=== PATIENT | male | born 1995 | race Asian ===

== ENCOUNTER 2016-06-26 03:12 | Emergency (ER) | payer BC ==
[~2016-06-26] VITALS: Ht 175.3 cm; Wt 74.5 kg
[2016-06-26 03:22] VITALS: TEMP 36.8; Ht 175.3 cm; Wt 74.5 kg
[2016-06-26] MEDS ORDERED: ALBUT/IPRATROP 3MG/0.5MG NEB 3 ML VIAL INH STA (03:30)
[2016-06-26] MEDS ORDERED: PSEUDOEPHEDRINE HCL 30 MG TAB PO STA (03:31)
[2016-06-26] MEDS ORDERED: NF406 PO (03:44)
[2016-06-26] MEDS ORDERED: IBUP-1427 PO (03:45)
[2016-06-26] MEDS ORDERED: AMX500 (03:47)
[2016-06-26] MEDS ORDERED: AMOX1TAB42 PO (03:47)
[2016-06-26] MEDS ORDERED: VNTHFA/IN INH (03:48)
[2016-06-26 04:19] VITALS: BP 128/66; PULSE 111; O2SAT 94
--- NOTE | 2016-06-26 04:19 | EMERGENCY ROOM VISIT NOTE ---
History First contact with patient: 03:26 Chief Complaint: RESPIRATORY PROBLEMS Stated Complaint: ASTHMA ATTACK,POSSIBLY PNEUMONIA Nursing Triage Summary: Pt reports he was dx with the flu 1 week ago. Developed "asthma-like" symptoms 1 day ago. Hx of asthma. Cough. History of Present Illness The patient is a 20 year old male who presents to the Emergency Room with complaints of cough and wheezing for the past week. Patient was diagnosed with influenza and ear infection 5 days ago. Continue medications as directed. Patient states he feels better from this. Patient is concerned about his asthma. Patient denies chest pain, abdominal pain, neck stiffness, vomiting, diarrhea, leg pain or swelling. No recent travel. Review of Systems See HPI for pertinent positives & negatives. A total of 10 systems reviewed and were otherwise negative. Past Medical/Surgical History Asthma Social History Smoking Status: Never Smoker Smokeless Tobacco Use: No Drug Use: none Marital Status: single Occupation Status: [employer] student Current/Historical Medications Scheduled Amoxicillin & Pot Clavulanate (Amoxicillin/Clavulanate P), 1 TAB PO BID Oseltamivir Phosphate (Tamiflu), 75 MG PO BID Scheduled PRN Albuterol Hfa (Ventolin Hfa), 2-4 PUFFS INH DIRECTED PRN for SOB/Wheezing Ibuprofen Tab (Motrin), 200-600 MG PO DIRECTED PRN for Pain or Fever Allergies Coded Allergies: No Known Allergies (Unverified , 06/26/16) Physical Exam Vital Signs Date Time Temp Pulse Resp B/P Pulse Ox O2 Delivery O2 Flow Rate FiO2 06/26/16 03:37 98 Room Air 06/26/16 03:22 36.8 106 16 130/76 95 Room Air Physical Exam PHYSICAL EXAM: Vital Signs: Reviewed Nurse's notes. Oxygen saturation was 95% on room air. GENERAL: Pleasant male with audible wheeze, Alert, oriented and coherent. The patient is able to speak in complete sentences. NECK: Supple, non -tender. CHEST: Symmetrical expansion. no retractions no accessory muscle use. HEART: Regular rate and normal heart sounds, no murmur, gallop or rub. LUNGS: Breath sounds equal but significantly diminished in intensity on both sides. Bilateral wheezes heard but no rales or pleuritic rub. SKIN: The skin was without rashes, erythema, edema, or bruising. There is no tenting of the skin. Capillary reflex less than 2 seconds. HEAD: Normocephalic atraumatic. EARS: External auditory canals clear, tympanic membranes pearly bliss without erythema or effusion bilaterally. EYES: Pupils equal round and reactive to light and accommodation. Conjunctivae without injection, sclerae without icterus. Extraocular movements intact. NOSE: Patent, turbinates without inflammation or discharge. No sinus tenderness. MOUTH: Mucous membranes moist. Tonsils are not enlarged. Pharynx without erythema or exudate. Uvula midline. Airway patent. Tongue does not deviate. ABDOMEN: Positive bowel sounds x 4. Normal tympanic percussion. Soft, nontender, without masses or organomegaly. Weber sign negative. No guarding or rebound tenderness. MUSCULOSKELETAL: No muscle atrophy, erythema, or edema noted. NEURO: Patient was alert and oriented to person place and time. Normal sensation to light and sharp touch. No focal neurological deficits. Medical Decision & Procedures Medications Administered Medications (Trade) Dose Ordered Sig/Vasyl Route Start Time Stop Time Status Last Admin Dose Admin Prednisone (PredniSONE TAB) 60 mg NOW STAT PO 06/26/16 03:30 06/26/16 03:31 DC 06/26/16 03:44 60 MG Albuterol/ Ipratropium (Duoneb) 3 ml NOW STAT INH 06/26/16 03:30 06/26/16 03:31 DC 06/26/16 03:44 3 ML Pseudoephedrine HCl (Sudafed Tab) 60 mg NOW STAT PO 06/26/16 03:31 06/26/16 03:32 DC 06/26/16 03:43 60 MG ED Course Prior records/ancillary studies reviewed. Triage Nursing notes reviewed. The patient's history was concerning for respiratory difficulties. Differential diagnosis: Etiologies such as infections, reactive airway disease, pneumonia, pneumothorax , COPD, CHF, cardiac ischemia, pulmonary embolism, musculoskeletal, gastrointestinal, as well as others were entertained. Physical examination: As above. ER treatment provided: Steroids, nebulizer On reassessment the patient felt better. Diagnostic interpretation by me: Imaging studies: Chest x-ray with no acute consolidation or pneumothorax per my interpretation. This appears to be consistent with asthma exacerbation. Patient felt much better after being medicated as above. Lungs are reassessed and improved. He is advised to take medications as directed and follow-up with health services in a few days or here in the ER sooner for difficulty breathing, high fevers, chest pains, worsening signs or symptoms or as needed. By the evaluation outlined above emergent etiologies such as CHF, cardiac ischemia, pulmonary embolism, pneumonia, pneumothorax, musculoskeletal, serious bacterial infections, as well as others were deemed relatively unlikely. The pt informed about the findings as listed above. All questions were answered and pleased with the treatment. Return instructions were outlined and the patient was discharged in stable condition. Outpatient prescription management: Prednisone Referral: The patient was referred back to their primary care physician for follow-up in 2 to 3 days for a recheck of the current condition. Medical Decision As above Impression Primary Impression: Acute asthma exacerbation Departure Information Dispostion Home / Self-Care Condition GOOD Referrals [facility] (PCP) Patient Instructions My [facility] Additional Instructions Albuterol Inhaler: Take 2 puffs four times daily for five days, then as needed. Prednisone 50mg: Once daily until the prescription is finished. It is best to take this earlier in the day as some patients note occasional difficulty falling asleep when taken in the late evening. Acetaminophen(Tylenol) may be used for fever or pain. Use 1000mg every six hours as needed. Avoid using more than 3000mg in a 24 hour period. (AND/OR) Ibuprofen(Motrin, Advil) may be used for fever or pain. Use 600mg every six hours as needed. Take with food. Avoid using more than 2400mg in a 24 hour period. Do not use 2400mg per day for more than three consecutive days without physician direction. Prolonged inappropriate use can lead to stomach upset or ulcers. Rest and drink plenty of fluids. Avoid smoke/smoking, fumes, dust, or any triggers in the past that may have affected your breathing. Continue current medications. Return to the ER for chest pain, difficulty breathing, fevers, vomiting, worsening of your condition, or as needed. Follow up with your primary physician this week for a recheck of your current condition. Problem Qualifiers Primary Impression: Acute asthma exacerbation Asthma severity: unspecified severity Qualified Codes: J45.901 - Unspecified asthma with (acute) exacerbation
[2016-06-26] MEDS ORDERED: PRED50TA PO (04:20)
--- NOTE | 2016-06-26 08:24 | DIAGNOSTIC IMAGING REPORT ---
TWO VIEW CHEST CLINICAL HISTORY: Cough and fever. FINDINGS: PA and lateral chest radiographs are obtained. No prior studies are available for comparison at the time of dictation. The cardiomediastinal silhouette is unremarkable. The lungs and pleural spaces are clear. There is no pneumothorax. The bony thorax appears intact. IMPRESSION: No active disease in the chest. Electronically signed by: Mendoza Fernández M.D. 06/26/2016 8:23 AM Dictated Date/Time: 06/26/2016 8:22 AM
== END 2016-06-26 04:25 | disposition home or self-care (01) ==
LOC: C.EDB 03:13
DX: J45.901 Unspecified asthma with (acute) exacerbation (principal)

== ENCOUNTER 2016-08-18 00:44 | Emergency (ER) | payer BC ==
[~2016-08-18] VITALS: Ht 175.3 cm; Wt 77.1 kg
[~2016-08-18 00:44] MED LIST: AMOX1TAB42 PO; IBUP-1427 PO; NF406 PO; VNTHFA/IN INH
[2016-08-18 00:48] VITALS: TEMP 36.6; Ht 175.3 cm; Wt 77.1 kg
--- NOTE | 2016-08-18 01:21 | EMERGENCY ROOM VISIT NOTE ---
History Report prepared by Lucia: Kan Earl Under the Supervision of: Dr. Radha Dunlap D.O. First contact with patient: 00:53 Chief Complaint: HEAD INJURY (MINOR) Stated Complaint: HIT HEAD, CUT ON FOREHEAD History of Present Illness The patient is a 20 year old male who presents to the Emergency Room with complaints of a head injury that occurred [employer]. The patient rates his pain a 5/ 10 in severity. According to the patient, he slipped and fell face down approximately 5 concrete stairs in his apartment. He says that the stairs were wet. He notes that he had some alcoholic drinks earlier this evening. He hit his head and states that he may have had some loss of consciousness for a couple of seconds. He has a small laceration above his right eyebrow. The reason he came to the ED is for a possible concussion. He is also experiencing nausea, dizziness, and epistaxis. The patient denies any abdominal pain or any other pain. 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 Review of Systems See HPI for pertinent positives & negatives. A total of 10 systems reviewed and were otherwise negative. Past Medical & Surgical None Family History Patient reports no known family medical history. Social History Smoking Status: Never Smoker Alcohol Use: occasionally Drug Use: none Marital Status: single Housing Status: lives with roommate Occupation Status: [email or web address] Current/Historical Medications No Active Prescriptions or Reported Meds Allergies Coded Allergies: No Known Allergies (Unverified , 08/18/16) Physical Exam Vital Signs Date Time Temp Pulse Resp B/P Pulse Ox O2 Delivery O2 Flow Rate FiO2 08/18/16 02:27 79 17 113/75 98 Room Air 08/18/16 00:48 16 99 08/18/16 00:48 36.6 103 16 131/81 99 Room Air Physical Exam HEENT: Head - normocephalic. Small superficial laceration to the right frontal region with surrounding hematoma. It is 1.5 cm's. Pupils are equal, round, and reactive to light. Extraocular eye muscles are intact and sclera are anicteric. Ears - bilaterally patent canals with no evidence of hemotympanum. Nose - Dried blood in both nares. Mouth - moist buccal mucosa with no trauma to the teeth or signs of malocclusion. Neck: The neck is supple and there is no pain to palpation over the posterior cervical spine and no obvious step-offs or deformities. There is no JVD or tracheal deviation. Chest: There are no signs of deformities, contusions or abrasions to the chest wall. There is no obvious crepitus or paradoxical chest rise. Heart: Regular, rate, and rhythm. There is a normal S1 and S2 with no murmurs, clicks, or gallops appreciated. Lungs: Clear to auscultation bilaterally with no wheezes, rales, or rhonchi. Abdomen: Soft, completely nontender, nondistended, with good bowel sounds. There is no sign of trauma such as contusions, abrasions or penetrations. There are no palpable pulsatile masses or hepatosplenomegaly. There is no guarding, rigidity, or rebound noted. Pelvis: Stable to rock and compression. Extremities: No obvious trauma, deformities, contusions, or edema. There are easily palpable peripheral pulses. Neuro: The patient is awake and alert and easily able to follow commands. Muscle strength is 5 out of 5 in all 4 extremities. Otherwise, neuro exam is unremarkable. Back: The entire thoracic, lumbar, and sacral spine were palpated. There are no obvious step-offs or deformities noted. There are no obvious signs of trauma such as contusions abrasions penetrations noted to the back. Medical Decision & Procedures ER Provider Diagnostic Interpretation: Radiology results as stated below per my review and the radiologist's interpretation: CT HEAD: Forehead contusion. No calvarial or brain injury. CT FACIAL: No fracture. CT C SPINE: No fracture. Radiologist: Williams Mckeon M.D. Procedure Laceration was repaired by Baudilio Veloz PA-C. See his note ED Course 0053: Past medical records reviewed. The patient was evaluated in room B10. A complete history and physical exam was performed. 0244: At this time, Baudilio Veloz PA-C, performed a laceration repair procedure on this patient due to a high volume of patients at this time. Please see his procedure note for more information. 0259: Upon reevaluation, the patient is resting. I discussed findings and results with him. He verbalized agreement of the treatment plan. He was discharged home. Medical Decision The patient is a 20 year old male who presents to the ED with a head injury. Differential diagnosis includes skull fracture, nasal bone fracture, concussion , intracranial trauma, forehead laceration, and c-spine injury. CT scans of the facial bones, brain and cervical spine were unremarkable. The wound on his forehead was repaired with Dermabond. The patient is feeling fine. He'll be discharged home to rest with his head elevated and apply ice to his forehead. Impression Primary Impression: Forehead laceration Additional Impressions: Closed head injury Fall down stairs Scribe Attestation The scribe's documentation has been prepared under my direction and personally reviewed by me in its entirety. I confirm that the note above accurately reflects all work, treatment, procedures, and medical decision making performed by me. Departure Information Dispostion Home / Self-Care Prescriptions No Active Prescriptions or Reported Meds Referrals [facility] (PCP) Forms HOME CARE DOCUMENTATION FORM, IMPORTANT VISIT INFORMATION Patient Instructions ED Laceration Facial Skin Glue, My [employer] Additional Instructions Rest with your head elevated. Apply ice Use tylenol for headache Allow the glue to flake off slowly Watch for signs of infection Problem Qualifiers
[2016-08-18 02:27] VITALS: BP 113/75; PULSE 79; O2SAT 98
--- NOTE | 2016-08-18 02:44 | EMERGENCY ROOM VISIT NOTE ---
ED Visit Note I was approached by my attending physician and asked to perform wound repair using Dermabond to a forehead laceration. Please refer to her dictation for entire historical and physical examination information. Procedure as follows: Verbal consent was obtained to perform the procedure. The forehead laceration was cleaned with Betadine and sterile saline and there was no bleeding. The edges of the laceration were approximated and secured with 2 layers of Dermabond glue with good wound approximation. The patient tolerated the procedure well.
--- NOTE | 2016-08-18 08:00 | DIAGNOSTIC IMAGING REPORT ---
CT OF THE HEAD WITHOUT CONTRAST CLINICAL HISTORY: Fall with head injury. COMPARISON STUDY: No previous studies for comparison. TECHNIQUE: Helical axial images of the head were obtained without IV contrast. Automated exposure control was utilized for the study. FINDINGS: No acute intracranial hemorrhage, midline shift or mass effect is present. Ventricular system is normal. Basilar cisterns are patent. There are no extra-axial collections. Rene-white differentiation is maintained. There is a small right forehead contusion. There is no calvarial fracture. IMPRESSION: 1. No acute intracranial findings. 2. Small right forehead contusion. No calvarial fracture. Electronically signed by: Frank Hutson M.D. 08/18/2016 7:58 AM Dictated Date/Time: 08/18/2016 7:57 AM
--- NOTE | 2016-08-18 08:01 | DIAGNOSTIC IMAGING REPORT ---
MAXILLOFACIAL CT WITHOUT CONTRAST CLINICAL HISTORY: Fall. COMPARISON STUDY: None. TECHNIQUE: A maxillofacial CT was performed without IV contrast. Coronal and sagittal reformats were viewed. FINDINGS: No acute fracture is identified. There is a small right forehead contusion. Globes are intact. There is no retrobulbar hematoma. IMPRESSION: No acute facial fracture. Electronically signed by: Frank Hutson M.D. 08/18/2016 8:00 AM Dictated Date/Time: 08/18/2016 7:59 AM
--- NOTE | 2016-08-18 08:03 | DIAGNOSTIC IMAGING REPORT ---
CT OF THE CERVICAL SPINE WITHOUT CONTRAST CLINICAL HISTORY: Fall. COMPARISON STUDY: No previous studies for comparison. TECHNIQUE: Helical axial images of the cervical spine were obtained without IV contrast. Sagittal and coronal reconstructions were viewed. FINDINGS: Alignment of the cervical spine is anatomic. Vertebral body heights are maintained. There is no acute fracture. Craniocervical junction is intact. IMPRESSION: No acute cervical spine fracture or subluxation. Electronically signed by: Frank Hutson M.D. 08/18/2016 8:02 AM Dictated Date/Time: 08/18/2016 8:00 AM
== END 2016-08-18 03:02 | disposition home or self-care (01) ==
LOC: C.EDB 00:45
DX: S01.81XA Laceration without foreign body of other part of head, initial encounter (principal); W10.9XXA Fall (on) (from) unspecified stairs and steps, initial encounter; Y92.039 Unspecified place in apartment as the place of occurrence of the external cause